=== PATIENT | female | born 1970 | race Caucasian/White ===

== ENCOUNTER 2018-04-09 08:34 | Outpatient (CLI) | payer BC ==
--- NOTE | 2018-04-09 11:05 | MRI ---
MRI CERVICAL SPINE WITHOUT CONTRAST: INDICATIONS: A 48-year-old female with neck pain and cervical radiculopathy. TECHNIQUE: Multiplanar, multisequence MR images were obtained of the cervical spine without IV contrast. FINDINGS: The visualized posterior fossa appears within normal limits. The craniocervical junction on the sagi ttal images appears within normal limits. C2-C3: There is mild to moderate facet joint degenerative change on the left. There is mild facet j oint degenerative change on the right. C3-C4: There is an asymmetric to the left broad-based disk bulge with uncovertebral hypertrophy and facet joint degenerative change. Broad-based bulge does mildly efface the ventral subarachnoid space without cord contact. C4-C5: There is a broad-based bulge with uncovertebral hypertrophy inducing severe right neural fora sherri narrowing. There is also mild central canal narrowing with mild ventral effacement of the spin al cord. C5-C6: There is a broad-based bulge with facet joint degenerative change and uncovertebral hypertrop hy inducing mild central canal narrowing and mild left neural foraminal narrowing. C6-C7: There is a broad-based bulge inducing mild central canal narrowing and mild bilateral neural foraminal narrowing. C7-T1: There is no appreciable central canal or neural foraminal narrowing. There is a small suspected hemangioma at T2. IMPRESSION: Multilevel spondylosis of the cervical spine with central canal and neural foraminal narrowing seen f rom C4-C5 through C6-C7, as above. POS: [facility]
== END 2018-04-09 08:35 | disposition home or self-care (01) ==
LOC: TBSIIMAG 08:34
PROVIDERS: ATTEND Physician Assistant Surgical
DX: M47.22 Other spondylosis with radiculopathy, cervical region (principal); M99.81 Other biomechanical lesions of cervical region; M48.02 Spinal stenosis, cervical region
CPT/HCPCS: 72141

== ENCOUNTER 2018-06-25 10:32 | Outpatient (CLI) | payer BC ==
[2018-06-25 12:22] LABS: Hemoglobin 12.9 g/dL (12.0-16.0); Mean Corpuscular HGB CONC 32.7 g/dL (32.0-36.0); Mean Corpuscular Hemoglobin 31.8 pg (27.0-31.0); Mean Corpuscular Volume 97.1 fL (78.0-98.0); Mean Platelet Volume 7.1 fL (7.4-10.4); Platelet Count 407 thou/uL (130-400); RBC Distribution Width 12.4 % (11.5-14.5); Red Blood Cell (RBC) Count 4.07 mill/uL (4.20-5.40)
[2018-06-25 12:28] LABS: PTT 26.2 SEC (22.9-36.1)
[2018-06-25 12:36] LABS: Prothrombin Time 13.7 SEC (12.0-14.7)
[2018-06-25 12:38] LABS: Anion Gap 13 mmol/L (10-20); BUN (Urea Nitrogen) 12 mg/dL (7.0-18.7); Calc. Creatinine Clearance 0 mL/min (70-130); Calcium 9.2 mg/dL (7.8-10.44); Carbon Dioxide 26 mmol/L (22-29); Chloride 103 mmol/L (98-107); Estimated GFR-MDRD 82; Glucose 87 mg/dL (70-105); Potassium 3.2 mmol/L (3.5-5.1); Sodium 139 mmol/L (136-145)
--- NOTE | 2018-06-25 15:02 | EKG ---
Test Reason : Blood Pressure : / mmHG Vent. Rate : 088 BPM Atrial Rate : 088 BPM P-R Int : 128 ms QRS Dur : 088 ms QT Int : 390 ms P-R-T Axes : -05 031 003 degrees QTc Int : 471 ms Normal sinus rhythm Normal ECG When compared with ECG of 02-MAY-2017 15:30, No significant change was found Confirmed by DR. Cristi ANN ([id number]) on 06/25/2018 3:02:34 PM Referred By: WILDER Confirmed By:DR. Cristi ANN
== END 2018-06-25 10:33 | disposition home or self-care (01) ==
LOC: LABBT 10:32
PROVIDERS: ATTEND Surgery
DX: Z01.818 Encounter for other preprocedural examination (principal); M48.061 Spinal stenosis, lumbar region without neurogenic claudication; M54.12 Radiculopathy, cervical region
CPT/HCPCS: 80048; 85027; 85610; 85730; 93005; 93010

== ENCOUNTER 2018-07-02 05:36 | Day surgery (SDC) | payer BC ==
[2018-06-25 11:08] VITALS: BMI 32.1
[2018-07-02] MEDS ORDERED: CEFAZOLIN 2 GM/50 ML BAG ONE (06:22)
[2018-07-02] MEDS ORDERED: Thrombin 5000 UNITS/5 ML VIAL ONE (06:28)
[2018-07-02] MEDS ORDERED: Sodium Chloride 0.9% 10 ML ONE (06:28)
[2018-07-02] MEDS ORDERED: Fentanyl 250 MCG/5 ML VIAL ONE (07:10)
[2018-07-02] MEDS ORDERED: Midazolam HCl 2 mg/2 ml Vial ONE (07:15)
[2018-07-02] MEDS ORDERED: Famotidine/PF 20 mg/2ml Vial ONE (07:18)
[2018-07-02] MEDS ORDERED: PACU-Morphine 4MG/ML VIAL SLOW IVP PRN (09:16)
[2018-07-02] MEDS ORDERED: Promethazine HCl 25 MG/ML VIAL IM PRN ×2 (09:16→09:48)
[2018-07-02] MEDS ORDERED: Morphine Sulfate 2 MG/ML SYRINGE SLOW IVP PRN (09:16)
[2018-07-02] MEDS ORDERED: Promethazine HCl 25 MG/ML VIAL SLOW IVP PRN (09:16)
[2018-07-02] MEDS ORDERED: Meperidine HCl/PF 25 MG/ML VIAL SLOW IVP PRN (09:16)
[2018-07-02] MEDS ORDERED: HYDROmorphone 2 MG/ML VIAL SLOW IVP PRN (09:16)
[2018-07-02] MEDS ORDERED: Ondansetron HCl/PF 4 MG/2 ML Vial IVP PRN (09:16)
[2018-07-02] MEDS ORDERED: Fleet Enema 133 ML BOT PR PRN (09:48)
[2018-07-02] MEDS ORDERED: Acetaminophen/Codeine 30-300mg Tablet PO PRN (09:48)
[2018-07-02] MEDS ORDERED: Mag-Al 1200 mg/1200 mg/30 ML UDCUP PO PRN (09:48)
[2018-07-02] MEDS ORDERED: Bisacodyl 10 MG SUPP PR PRN (09:48)
[2018-07-02] MEDS ORDERED: Acetaminophen 325 MG TAB PO PRN (09:48)
[2018-07-02] MEDS ORDERED: Milk Of Magnesia 30 ML UDCUP PO PRN (09:48)
[2018-07-02] MEDS ORDERED: Morphine 2 MG/ML SYRINGE SLOW IVP PRN (09:48)
[2018-07-02] MEDS ORDERED: tiZANidine HCl 4 MG TAB PO PRN (09:48)
[2018-07-02] MEDS ORDERED: Fentanyl 100 MCG/2 ML VIAL ONE (10:15)
[2018-07-02] MEDS ORDERED: Morphine 4 MG/ML VIAL ONE (10:35)
--- NOTE | 2018-07-02 11:00 | OP ---
OR: 11. WOUND TYPE: Type 1 wound. SURGEON: Man Farris M.D. MILLING/POLISHING OPERATOR: Azael Jensen PA-C. PREPROCEDURE DIAGNOSES: Multilevel cervical stenosis with spinal cord and nerve root compression, sy mptomatic. POSTPROCEDURE DIAGNOSES: Multilevel cervical stenosis with spinal cord and nerve root compression, s ymptomatic. PROCEDURES: 1. Anterior C4-C5, C5-C6, C6-C7 diskectomies for decompression of the neural elements. 2. Placement of interbody spacer, C4-C5, C5-C6, C6-C7 packed local bone autograft obtained from same incision and allograft arthrodesis C4-C7. 3. Anterior cervical plate and screw fixation C4-C5, C6-C7. 4. Use of operative microscope for microdissection. DESCRIPTION OF PROCEDURE: After informed consent was obtained from the patient, the patient brought to OR 11. Proper patient pause and the identification was carried out. She was placed in excellent endotracheal anesthesia, positioned supine on the OR table. The right anterior oblique stuart was chos en for approach to the C4, C5, C6, C7 segments. This region was sterilely cleansed, prepared, and dr lillian. Proper patient pause and identification was carried out. The wound was then opened with a com bination of sharp, monopolar, and blunt dissection and the C4, C5, C6, C7 segments were exposed proce eding lateral to the larynx and pharynx and medial to the right carotid sheath. We identified again the prevertebral layer of deep cervical fascia and exposed the C4, C5, C6, C7 segments. Satisfied wi th our exposure, we then brought the microscope in for microdissection following localization film an d we proceeded to distract at the C4-C5 segment. Diskectomy was performed there with excellent decom pression of the neural elements. Then endplates were prepared, an interbody spacer packed with graft was placed for arthrodesis. We then turned our attention to distraction of C5-C6 decompression of n eural elements at that segment and preparation of the endplates. Interbody spacer of appropriate dim ension was again packed. We then turned our attention to the C6-C7 segments and distraction at that segment occurred as well with decompression of the neural elements and preparation of the endplates a nd placement of interbody spacer. At the conclusion, we had placement of interbody spacers from C4 a ll the way down to C7 for arthrodesis. That microscope was removed and anterior cervical plate and s crew fixation, C4, C5, C6, C7 and final tightening occurred. Copious irrigation occurred throughout as to maximizing hemostasis. The wound was then closed in anatomic layers following copious irrigati on. The patient then emerged from anesthesia.
[2018-07-02] MEDS: Sodium Chloride 0.9% 1,000 ML IV SCH (11:13)
[2018-07-02] MEDS: traMADol HCl 50 MG TAB PO PRN ×2 (13:03→20:58)
[2018-07-02] MEDS: CEFAZOLIN 2 GM/50 ML BAG IVPB SCH ×2 (13:05→21:00)
[2018-07-02] MEDS ORDERED: Ondansetron PF 4 MG/2 ML Vial ONE (14:30)
[2018-07-02] MEDS ORDERED: Dexamethasone 20 MG/5 ML VIAL ONE (14:30)
[2018-07-02] MEDS ORDERED: Glycopyrrolate 0.2 MG/ML 5 ML SYRINGE ONE (14:30)
[2018-07-02] MEDS ORDERED: Metoclopramide HCl 10 MG/2 ML VIAL ONE (14:30)
[2018-07-02] MEDS ORDERED: PROPOFOL 200 MG/20 ML VIAL ONE (14:30)
[2018-07-02] MEDS ORDERED: Lidocaine 1% PF 5 ML VIAL ONE (14:30)
[2018-07-02] MEDS ORDERED: Amlodipine 5 MG TAB PO SCH ×2 (21:00)
[2018-07-02] MEDS ORDERED: Doxazosin Mesylate 4 MG TAB PO SCH ×2 (21:00)
[2018-07-02] MEDS: HYDROcodone/Acetaminophen 7.5/325 mg Tablet PO PRN (22:46)
[2018-07-03] MEDS: CEFAZOLIN 2 GM/50 ML BAG IVPB SCH (05:43)
[2018-07-03] MEDS: traMADol HCl 50 MG TAB PO PRN (05:47)
[2018-07-03] MEDS: Sodium Chloride 0.9% 1,000 ML IV SCH ×2 (05:47→11:54)
[2018-07-03 08:25] VITALS: TEMP 97.3
[2018-07-03] MEDS ORDERED: Furosemide 20 MG TAB PO SCH ×2 (09:00)
[2018-07-03] MEDS ORDERED: Venlafaxine HCl XR 75 MG CAP PO SCH ×2 (09:00)
[2018-07-03] MEDS ORDERED: Losartan/Hydrochlorothiazide 100 mg/25 mg Tablet PO SCH ×2 (09:00)
--- NOTE | 2018-07-03 11:58 | PRG ---
DATE OF SERVICE: 07/03/2018 Ms. Velasquez is postop day 1 from C4-7 ACDF. Her drain output has been essentially 0. She has no c omplaints. We will plan for dismissal. We went over both intra and postoperative issues.
[2018-07-03 12:12] VITALS: BP 129/71
[2018-07-03] MEDS: HYDROcodone/Acetaminophen 7.5/325 mg Tablet PO PRN (13:00)
== END 2018-07-03 13:24 | disposition home or self-care (01) ==
LOC: SDC 05:36 → SURG B 09:47 → SDC 07-03 13:24
PROVIDERS: ATTEND Surgery
PROC: 0RG2070 Fusion of 2 or more Cervical Vertebral Joints with Autologous Tissue Substitute, Anterior Approach, Anterior Column, Open Approach (ICD-10-PCS; principal; 2018-07-02)
PROC: 0RG20A0 Fusion of 2 or more Cervical Vertebral Joints with Interbody Fusion Device, Anterior Approach, Anterior Column, Open Approach (ICD-10-PCS; principal; 2018-07-02)
PROC: 0RT30ZZ Resection of Cervical Vertebral Disc, Open Approach (ICD-10-PCS; principal; 2018-07-02)
DX: M48.02 Spinal stenosis, cervical region (principal); M50.121 Cervical disc disorder at C4-C5 level with radiculopathy; Z79.82 Long term (current) use of aspirin; Z79.899 Other long term (current) drug therapy; Z88.2 Allergy status to sulfonamides; Z88.8 Allergy status to other drugs, medicaments and biological substances
CPT/HCPCS: 76001; 96374; 96375; C1713; C1776; J0131; J1100; J2001; J2250; J2270; J2405; J2704; J2765; J3010; J3490; S0028

== ENCOUNTER 2018-07-22 11:36 | Outpatient (CLI) | payer BC | END 2018-07-22 11:37 | disposition home or self-care (01) | LOC: BICMAMMO 11:36 | PROVIDERS: ATTEND Obstetrics & Gynecology | DX: Z12.31 Encounter for screening mammogram for malignant neoplasm of breast (principal) | CPT/HCPCS: 77063; 77067 ==

== ENCOUNTER 2018-08-16 09:20 | Outpatient (CLI) | payer BC ==
--- NOTE | 2018-08-16 10:06 | RAD ---
CERVICAL SPINE FOUR VIEWS: 08/16/2018 HISTORY: Cervicalgia. COMPARISON: None available. FINDINGS: C1 to the cervicothoracic junction is seen on the lateral view. Post surgical changes related to ant erior cervical fusion are noted with an anterior plate and screws transfixing the C4-C5, C5-C6, and C 6-C7 levels. Intradiskal prostheses are present at these levels. No hardware complication is seen. There is mild narrowing of the C3-C4 intervertebral disk space with slight kyphosis of the cervical s pine centered at this level. There is also mild widening of the interspinous distance at C3-C4, whic h could be related to positioning and the mild kyphosis. The prevertebral soft tissues are within no rmal limits. There is no fracture or subluxation identified on this exam. IMPRESSION: 1. Mild widening of the interspinous distance at the C3-C4 level, with slight exaggerated kyphosis a t this level as well. Findings may be attributable to positioning. Clinical correlation is suggeste d. 2. Post surgical changes related to anterior cervical fusion at the C4 through C7 levels. No hardwa re complication is seen. 3. Mild facet degenerative changes at the C7-T1 level. POS: [facility]
== END 2018-08-16 09:21 | disposition home or self-care (01) ==
LOC: TBSIIMAG 09:20
PROVIDERS: ATTEND Surgery
DX: M54.2 Cervicalgia (principal); M47.813 Spondylosis without myelopathy or radiculopathy, cervicothoracic region; M40.202 Unspecified kyphosis, cervical region; M50.81 Other cervical disc disorders, high cervical region; Z98.1 Arthrodesis status
CPT/HCPCS: 72040

== ENCOUNTER 2019-07-23 15:45 | Outpatient (CLI) | payer BC ==
--- NOTE | 2019-07-24 08:33 | MMO ---
Bilateral MAMMO Bilat Screen [facility]. CLINICAL HISTORY: Patient is 49 years old and is seen for screening. The patient has no family history of breast cancer. The patient has no personal history of cancer. VIEWS: The views performed were: bilateral craniocaudal with tomosynthesis and bilateral mediolateral oblique with tomosynthesis. FILMS COMPARED: The present examination has been compared to prior imaging studies performed at [facility] on 06/18/2015, 06/19/2016, 07/03/2017 and 07/22/2018. This study has been interpreted with the assistance of computer-aided detection. MAMMOGRAM FINDINGS: There are scattered fibroglandular densities. There are no suspicious masses, suspicious calcifications, or new areas of architectural distortion. IMPRESSION: THERE IS NO MAMMOGRAPHIC EVIDENCE OF MALIGNANCY. A ROUTINE FOLLOW-UP MAMMOGRAM IN 1 YEAR IS RECOMMENDED. THE RESULTS OF THIS EXAM WERE SENT TO THE PATIENT. ACR BI-RADS Category 1 - Negative MAMMOGRAPHY NOTE: 1. A negative mammogram report should not delay a biopsy if a dominant of clinically suspicious mass is present. 2. Approximately 10% to 15% of breast cancers are not detected by mammography. 3. Adenosis and dense breasts may obscure an underlying neoplasm. Reported by: EVANGELISTA WALKER MD Electonically Signed: [id number]
== END 2019-07-23 15:46 | disposition home or self-care (01) ==
LOC: BICMAMMO 15:45
PROVIDERS: ATTEND Obstetrics & Gynecology
DX: Z12.31 Encounter for screening mammogram for malignant neoplasm of breast (principal)
CPT/HCPCS: 77063; 77067

== ENCOUNTER 2019-09-03 09:02 | Outpatient (CLI) | payer BC ==
--- NOTE | 2019-09-03 11:42 | MRI ---
MRI LUMBAR SPINE WITH AND WITHOUT CONTRAST: DATE: 09/03/2019 HISTORY: 49-year-old female with low back pain and lumbar radiculopathy COMPARISON: no prior lumbar MRI Noncontrast CT 04/18/2017. TECHNIQUE: Multiple sequences obtained in axial and sagittal planes, pre and post IV injection of gadolinium-bas ed contrast agent. FINDINGS: Very large number of bilateral renal cysts ranging from tiny to huge. Bilateral nephromegaly. 5 lumbar-type vertebrae. Conus medullaris terminates at L1. T12-L1:Essentially normal. L1-2:Minimal disc bulge. Otherwise essentially normal. L2-3:Minimal disc bulge. Mild bilateral degenerative facet changes. Mild bilateral neural foraminal s tenosis. No central stenosis. Mild dextroscoliosis apex of curvature at L2. L3-4:Severe disc space narrowing with extensive irregularity and numerous tiny endplate defects. Smal l left posterior superior L4 endplate defect. Prominent Modic type II and type III endplate marrow changes. High-grade bilateral facet DJD results in grade 1 anterolisthesis of L3 on L4. New midline l aminectomy defect with resection of ligamentum flavum since prior CT resulting in relief of previously demonstrated severe central spinal canal stenosis. Currently no high-grade central spinal canal stenosis. Focal kyphosis of lumbar spine at this level. Chronic mild grade 1 right lateral subluxation of L3 on L4. Moderate-severe bilateral neural foraminal stenosis. On the left, craniocaud al dimension of the neural foramen is narrowed, with chronic impingement and the formation of the exiting left L3 nerve root.. L4-5:Asymmetrically severe right-sided degenerative disc disease due to concavity of the counter curv ature to the scoliosis, with severe right-sided disc space narrowing, numerous right-sided Schmorl's nodes, and severe right-sided Modic type III changes. Moderate type I changes on the left s jose. Retrolisthesis of L4 on L5. Diffuse disc bulge asymmetrically larger at the right paracentral, right lateral, and right far lateral regions. Interval new midline laminectomy with resection of liga mentum flavum resulting in relief of the previously demonstrated severe central spinal canal stenosis. Postsurgical scar tissue in the right lateral recess surrounding the right L5 nerve root in the epidural space. No high-grade central spinal canal stenosis. Extremely severe right neural foraminal stenosis with chronic compression the exiting right L4 nerve root. There is enhancement in the soft tissues surrounding the exiting right L4 nerve root in the immediate right perivertebral space, just lateral to the neural foramen. Moderate bilateral facet DJD. Moderate left neural foramin al stenosis. L5-S1:Disc space maintained. No central stenosis or high-grade neural foraminal stenosis. Mild facet DJD. IMPRESSION: 1) lumbar spondylosis consisting of February severe degenerative disc disease at L3-4 and L4-5. 2) associated scoliosis and grade 1 spondylolisthesis related to the above. 3) extremely severe right neural foraminal stenosis at L4-5 with significant chronic impingement on e xiting right L4 nerve root, and enhancement of immediate right perivertebral surrounding tissues. 4) moderate to severe bilateral neural foraminal stenosis at L3-4, including chronic compression and deformity of exiting left L3 nerve root. 5) status post interval midline decompressive laminectomies at L3-4 and L4-5, relieving the previousl y demonstrated severe central spinal canal stenoses. 6) evidence for autosomal dominant polycystic kidney disease.
[2019-09-03] MEDS ORDERED: Magnevist 469MG/ML 20 ML VIAL ONE (15:58)
== END 2019-09-03 09:03 | disposition home or self-care (01) ==
LOC: TBSIIMAG 09:02
PROVIDERS: ATTEND Physician Assistant Surgical
DX: M48.061 Spinal stenosis, lumbar region without neurogenic claudication (principal); M54.5 Low back pain; M51.16 Intervertebral disc disorders with radiculopathy, lumbar region; M47.26 Other spondylosis with radiculopathy, lumbar region; M43.16 Spondylolisthesis, lumbar region; M41.9 Scoliosis, unspecified; M25.80 Other specified joint disorders, unspecified joint; Q61.3 Polycystic kidney, unspecified; Z98.890 Other specified postprocedural states
CPT/HCPCS: 72158; A9579

== ENCOUNTER 2019-10-10 12:37 | Outpatient (CLI) | payer BC ==
--- NOTE | 2019-10-10 13:45 | CT ---
CT LUMBAR SPINE WITHOUT CONTRAST: COMPARISON: 04/18/2017. HISTORY: Degenerative disc disease. Low back pain. Pain radiates down the right leg. Patient has had previous back injections. FINDINGS: There is extensive degenerative change with loss of disc space height, vacuum disc phenomenon, sclero sis, subchondral cyst formation and osteophyte formation at L3-L4 and L4-L5. No evidence of fracture. On the coronal images, there is stable leftward curvature of the L3-L4 disc space. Visualized solid organs demonstrate multiple renal masses compatible with polycystic kidney disease. Correlate clinically. Visualized alimentary canal and mesentery is unremarkable. Visualized uterus, adnexal structures and urinary bladder are unremarkable. Presacral fat is preserved. Sacrum is unremarkable. Sacral alae are preserved. There are interval laminectomy defects at L3-L4 and L4-5. Limited evaluation of the contents of the central spinal canal and neural foramina due to technique. T11-T12: No significant central canal stenosis or significant neural foraminal narrowing. T12-L1: No significant central canal stenosis or significant neural foraminal narrowing. L1-L2: Broad-based disc bulge minimally abuts the thecal sac. No significant central canal stenosis. Bilaterally, neural foramina are patent. L2-L3: Broad-based disc bulge, ligament flavum thickening and facet hypertrophy result in mild centra l canal stenosis. Right neural foramen is patent. Mild left foraminal narrowing. L5-S1: Severe loss of disc space height. Posterior laminectomy defect. Broad-based osteophyte ridge w ith mild central canal stenosis. Moderate right and severe left foraminal narrowing. L4-L5: Vacuum disc phenomenon. Broad-based disc-osteophyte complex abuts the thecal sac. There does a ppear to be mass effect upon the ventral thecal sac with narrowing of both subarticular zones. There is presumed partial obscuration of bilateral traversing L5 nerve roots. Posterior laminectomy d efect is identified. Severe right and moderate left foraminal narrowing. L5-S1: Broad-based disc bulge minimally encroaches upon bilateral traversing S1 nerve roots without s ignificant obscuration. No significant central canal stenosis. Mild bilateral foraminal narrowing. IMPRESSION: 1. Severe degenerative disc disease at L3-L4 and L4-L5 as described above. There are posterior petra ctomy defects. No evidence of high-grade central canal stenosis. 2. Significant bilateral foraminal narrowing throughout the lumbar spine as described above. Greatest degree of foraminal stenosis is at L3-L4 and L4-L5. Transcribed Date/Time: 10/10/2019 2:55 PM
== END 2019-10-10 12:38 | disposition home or self-care (01) ==
LOC: TBSIIMAG 12:37
PROVIDERS: ATTEND Surgery
DX: M51.16 Intervertebral disc disorders with radiculopathy, lumbar region (principal); M48.062 Spinal stenosis, lumbar region with neurogenic claudication; M43.16 Spondylolisthesis, lumbar region; M54.5 Low back pain; Z98.890 Other specified postprocedural states
CPT/HCPCS: 72131

== ENCOUNTER 2020-01-12 13:00 | Inpatient (IN) | payer BC, OTHER ==
[2020-01-12 12:32] VITALS: BMI 29.0
[2020-01-12 14:01] LABS: Hemoglobin 13.9 g/dL (12.0-16.0); Mean Corpuscular HGB CONC 32.8 g/dL (32.0-36.0); Mean Corpuscular Hemoglobin 32.9 pg (27.0-31.0); Mean Platelet Volume 7.2 fL (7.4-10.4); Platelet Count 446 thou/uL (130-400); RBC Distribution Width 11.5 % (11.5-14.5); Red Blood Cell (RBC) Count 4.23 mill/uL (4.20-5.40); White Blood Cell (WBC) Count 7.8 thou/uL (4.8-10.8)
[2020-01-12 14:07] LABS: PTT 28.8 sec (22.9-36.1); Prothrombin Time 13.4 sec (12.0-14.7)
[2020-01-12 14:23] LABS: Anion Gap 12 mmol/L (10-20); BUN (Urea Nitrogen) 26 mg/dL (7.0-18.7); Calc. Creatinine Clearance 0 mL/min (70-130); Calcium 9.9 mg/dL (7.8-10.44); Carbon Dioxide 26 mmol/L (22-29); Chloride 101 mmol/L (98-107); Estimated GFR-MDRD 68; Glucose 86 mg/dL (70-105); Potassium 4.2 mmol/L (3.5-5.1); Sodium 135 mmol/L (136-145)
[2020-01-12 18:47] LABS: SARS-CoV-2 MS2 Positive; SARS-CoV-2 N Gene Negative; SARS-CoV-2 S Gene Negative; SARS-CoV-2 orf1ab Negative
[2020-01-15] MEDS ORDERED: Thrombin 5000 UNITS/5 ML VIAL ONE (08:21)
[2020-01-15] MEDS ORDERED: Fentanyl 100 MCG/2 ML VIAL ONE ×2 (09:14→11:30)
[2020-01-15] MEDS ORDERED: HYDROmorphone 0.5 MG/0.5 ML SYRINGE ONE (09:14)
[2020-01-15] MEDS ORDERED: Dexamethasone 20 MG/5 ML VIAL ONE ×2 (11:43→13:00)
[2020-01-15] MEDS ORDERED: HYDROmorphone 2 MG/ML VIAL ONE (12:47)
[2020-01-15] MEDS ORDERED: EPHEDRINE 25 MG/5 ML SYRINGE ONE (13:00)
[2020-01-15] MEDS ORDERED: Rocuronium Bromide 10 MG/ML (10ML VIAL) ONE (13:00)
[2020-01-15] MEDS ORDERED: Lidocaine 1% PF 5 ML VIAL ONE (13:00)
[2020-01-15] MEDS ORDERED: PROPOFOL 200 MG/20 ML VIAL ONE (13:00)
[2020-01-15] MEDS ORDERED: Ondansetron PF 4 MG/2 ML Vial ONE (13:00)
[2020-01-15] MEDS ORDERED: Glycopyrrolate 0.2 MG/ML 5 ML SYRINGE ONE (13:00)
[2020-01-15] MEDS ORDERED: Morphine 2 MG/ML SYRINGE SLOW IVP PRN (14:47)
[2020-01-15] MEDS ORDERED: traMADol HCl 50 MG TAB PO PRN (14:47)
[2020-01-15] MEDS ORDERED: Mag-Al 1200 mg/1200 mg/30 ML UDCUP PO PRN (14:47)
[2020-01-15] MEDS ORDERED: Fleet Enema 133 ML BOT PR PRN (14:47)
[2020-01-15] MEDS ORDERED: Ondansetron PF 4 MG/2 ML Vial IVP PRN (14:47)
[2020-01-15] MEDS ORDERED: Milk Of Magnesia 30 ML UDCUP PO PRN (14:47)
[2020-01-15] MEDS ORDERED: Acetaminophen 325 MG TAB PO PRN (14:47)
[2020-01-15] MEDS ORDERED: Acetaminophen/Codeine 30-300mg Tablet PO PRN (14:47)
[2020-01-15] MEDS ORDERED: Bisacodyl 10 MG SUPP PR PRN (14:47)
[2020-01-15] MEDS ORDERED: Non-Formulary Item 1 EACH (Fexofenadine Hcl [Allegra Allergy] 180 MG) PO PRN (14:51)
[2020-01-15] MEDS ORDERED: hydrALAZINE 20 MG/ML VIAL SLOW IVP PRN (14:52)
[2020-01-15] MEDS ORDERED: CEFAZOLIN 2 GM in Premix Bag 1 BAG IVPB SCH (16:00)
[2020-01-15] MEDS: Sodium Chloride 0.9% 1,000 ML IV SCH (17:01)
[2020-01-15] MEDS: tiZANidine HCl 4 MG TAB PO PRN (17:02)
[2020-01-15] MEDS: HYDROcodone/Acetaminophen 7.5/325 mg Tablet PO PRN ×2 (17:03→22:21)
[2020-01-15] MEDS: CEFAZOLIN 2 GM in Premix Bag 1 BAG IVPB SCH (18:33)
[2020-01-15] MEDS: Potassium Chloride 20 MEQ TAB PO SCH (20:19)
[2020-01-15] MEDS: Doxazosin Mesylate 4 MG TAB PO SCH (20:19)
[2020-01-15] MEDS: cloNIDine 0.1 MG TAB PO SCH (20:19)
[2020-01-16] MEDS: CEFAZOLIN 2 GM in Premix Bag 1 BAG IVPB SCH ×3 (01:32→17:33)
[2020-01-16] MEDS: tiZANidine HCl 4 MG TAB PO PRN (01:33)
[2020-01-16] MEDS: HYDROcodone/Acetaminophen 7.5/325 mg Tablet PO PRN ×3 (05:34→21:41)
[2020-01-16] MEDS: Sodium Chloride 0.9% 1,000 ML IV SCH ×2 (05:36→09:21)
[2020-01-16 06:17] LABS: Anion Gap 10 mmol/L (10-20); BUN (Urea Nitrogen) 14 mg/dL (7.0-18.7); Calc. Creatinine Clearance 118 mL/min (70-130); Calcium 8.6 mg/dL (7.8-10.44); Carbon Dioxide 24 mmol/L (22-29); Chloride 105 mmol/L (98-107); Estimated GFR-MDRD 77; Glucose 120 mg/dL (70-105); Potassium 4.3 mmol/L (3.5-5.1); Sodium 135 mmol/L (136-145)
[2020-01-16 06:42] LABS: Band 15 % (5-11); Hemoglobin 11.9 g/dL (12.0-16.0); Lymphocytes 5 % (21-51); MDiff Complete? YES; Mean Corpuscular HGB CONC 34.1 g/dL (32.0-36.0); Mean Corpuscular Hemoglobin 34.4 pg (27.0-31.0); Mean Platelet Volume 7.3 fL (7.4-10.4); Monocytes 4 % (0-10); Neutrophil 76 % (42-75); Platelet Count 411 thou/uL (130-400); RBC Distribution Width 11.5 % (11.5-14.5); Red Blood Cell (RBC) Count 3.47 mill/uL (4.20-5.40); White Blood Cell (WBC) Count 21.8 thou/uL (4.8-10.8)
[2020-01-16] MEDS: Spironolactone 25 MG TAB PO SCH (08:19)
[2020-01-16] MEDS: Losartan/Hydrochlorothiazide 100 mg/25 mg Tablet PO SCH (08:20)
[2020-01-16] MEDS: Venlafaxine HCl XR 75 MG CAP PO SCH (08:20)
--- NOTE | 2020-01-16 11:26 | PRG ---
DATE OF SERVICE: 01/16/2020 Ms. Velasquez is postoperative day 1 from multilevel lumbar decompression and fusion. She is doing well with resolution in her right leg pain. She has excellent strength throughout her lower extremity myotomes. She is doing exceptionally well today. I would like to keep her one more day given the magnitude of the surgery. She can be discharged tomorrow. Job ID: [id number]
--- NOTE | 2020-01-16 14:02 | OP ---
DATE OF PROCEDURE: 01/15/2020 LOCATION: OR 12. SURGEON: Man Farris MD INDUSTRIAL ELECTRICAL TECHNICIAN: Chelsea Thornton PA-C. PREPROCEDURE DIAGNOSES: Lumbar spinal deformity with scoliosis, spondylolisthesis, and right L4 radiculopathy with right L5 radiculopathy. POSTPROCEDURE DIAGNOSES: Lumbar spinal deformity with scoliosis, spondylolisthesis, and right L4 radiculopathy with right L5 radiculopathy. PROCEDURES: 1. L3 through L5 posterior instrumented fusion with local bone autograft obtained with same incision and allograft. 2. L3 through L5 pedicle screw emily fixation. 3. Right L3-L4 revision hemilaminotomy and foraminotomy. 4. Right L4-L5 Cordova facetectomy with complete removal facet. 5. Transfacet diskectomy, right L4-L5 with removal of pedicle for complete decompression of the foraminal and extraforaminal component of the right L4 nerve root with diskectomy. DESCRIPTION OF PROCEDURE: After informed consent was obtained from the patient, the patient was brought to the OR. Proper patient, pause, and identification were carried out. She was placed under excellent general endotracheal anesthesia and positioned prone on the OR table. Prior wound was identified. This area was sterilely cleansed, prepared, and draped. Proper patient, pause, and identification were carried out. The wound was opened with combination of sharp, monopolar, and blunt dissection. The scarred areas of L3, L4, L5 bilaterally were identified along with transverse processes. Localization film confirmed our area of interest. We then performed a complete Cordova facetectomy at L4-L5 and revision hemilaminotomy on the right side at L3-L4 to complete decompression of the L4 nerve root. We then went out into the lateral and extralaminar lateral foramen with removal of the pedicle and lateral diskectomy, transfacet diskectomy. We also should free of the right L5 nerve root by removing the facet. We then turned our attention to placement of screw and emily fixation at L3, L4, L5 on the left side with anatomic and fluoroscopic guidance, and L3 and L5 rods were placed. Final tightening occurred. BMP along with local bone autograft and allograft were laid out over the left gutters, and a small amount of DuraSeal was applied for protection of the dura. Copious irrigation occurred throughout as to maximize hemostasis. The wound was then closed in anatomic layers. Job ID: [id number]
[2020-01-16] MEDS: cloNIDine 0.1 MG TAB PO SCH (21:38)
[2020-01-16] MEDS: Potassium Chloride 20 MEQ TAB PO SCH (21:43)
[2020-01-16] MEDS: Doxazosin Mesylate 4 MG TAB PO SCH ×2 (21:43→21:52)
[2020-01-17] MEDS: CEFAZOLIN 2 GM in Premix Bag 1 BAG IVPB SCH ×2 (01:41→08:59)
[2020-01-17] MEDS: HYDROcodone/Acetaminophen 7.5/325 mg Tablet PO PRN ×3 (02:30→11:42)
[2020-01-17] MEDS: Sodium Chloride 0.9% 1,000 ML IV SCH (07:33)
[2020-01-17 08:03] VITALS: TEMP 98.1
[2020-01-17] MEDS: Spironolactone 25 MG TAB PO SCH (08:58)
[2020-01-17] MEDS: Venlafaxine HCl XR 75 MG CAP PO SCH (08:58)
[2020-01-17] MEDS: Losartan/Hydrochlorothiazide 100 mg/25 mg Tablet PO SCH (08:59)
[2020-01-17 11:42] VITALS: BP 109/68
--- NOTE | 2020-01-18 00:13 | DIS ---
DATE OF ADMISSION: 01/15/2020 DATE OF DISCHARGE: 01/17/2020 Ms. Velasquez was admitted to [facility] by Dr. Man Farris on January 15, 2020, with discharge date on January 17, 2020. ADMISSION DIAGNOSIS: Status post lumbar decompression. DISCHARGE DIAGNOSIS: Status post lumbar decompression. Ms. Velasquez was admitted to the hospital for pain control and observation after surgery on the 14 of January. Consultations ordered to Physical Therapy. She was slow to mobilize early, but ultimately on the second day of her admission was up and moving and quite comfortable and ready to go home. She was discharged home in excellent condition with 2-week followup planned in the outpatient setting. Job ID: [id number]
== END 2020-01-17 12:30 | disposition home or self-care (01) | DRG 460 ==
LOC: SURG A 01-15 07:40 → EDSTATUS 01-15 13:00 → SJJU 01-15 16:09
PROVIDERS: ADMIT Surgery; ATTEND Surgery
PROC: 0SG1071 Fusion of 2 or more Lumbar Vertebral Joints with Autologous Tissue Substitute, Posterior Approach, Posterior Column, Open Approach (ICD-10-PCS; principal; 2020-01-15)
PROC: 01NB0ZZ Release Lumbar Nerve, Open Approach (ICD-10-PCS; 2020-01-15)
PROC: 0SB20ZZ Excision of Lumbar Vertebral Disc, Open Approach (ICD-10-PCS; 2020-01-15)
PROC: 00UT0JZ Supplement Spinal Meninges with Synthetic Substitute, Open Approach (ICD-10-PCS; 2020-01-15)
PROC: 3E0U0GB Introduction of Recombinant Bone Morphogenetic Protein into Joints, Open Approach (ICD-10-PCS; 2020-01-15)
DX: M48.061 Spinal stenosis, lumbar region without neurogenic claudication (principal); M43.16 Spondylolisthesis, lumbar region; M54.16 Radiculopathy, lumbar region; M41.9 Scoliosis, unspecified; Z79.82 Long term (current) use of aspirin; Z88.1 Allergy status to other antibiotic agents; Z88.2 Allergy status to sulfonamides; Z88.8 Allergy status to other drugs, medicaments and biological substances; Z11.59 Encounter for screening for other viral diseases
CPT/HCPCS: 36415; 36416; 76000; 80048; 84703; 85025; 85027; 85610; 85730; 86850; 86900; 86901; 87635; 93005; C1768; J0690; J1100; J1170; J2001; J2405; J2704; J3010; J3370; U0003

== ENCOUNTER 2020-02-23 10:55 | Outpatient (CLI) | payer BC ==
--- NOTE | 2020-02-23 12:38 | RAD ---
LUMBAR SPINE 3 VIEWS: Date: 02/23/2020 HISTORY: Postop evaluation. COMPARISON: CT exam dated 10/10/2019. FINDINGS: New left L3-L5 and right L3-L5 posterior spinal fusion hardware with transpedicular screws and interc onnecting rods. Laminectomy change. Moderate dextroscoliosis centered at L2-3. No evidence for hardware complication. IMPRESSION: Satisfactory postoperative appearance. POS: [facility]
== END 2020-02-23 10:56 | disposition home or self-care (01) ==
LOC: TBSIIMAG 10:55
PROVIDERS: ATTEND Physician Assistant
DX: M51.16 Intervertebral disc disorders with radiculopathy, lumbar region (principal); Z98.1 Arthrodesis status
CPT/HCPCS: 72100

== ENCOUNTER 2020-07-26 12:33 | Outpatient (CLI) | payer BC ==
--- NOTE | 2020-07-26 15:30 | MMO ---
Bilateral MAMMO Bilat Screen [facility]. CLINICAL HISTORY: Patient is 50 years old and is seen for screening. The patient has no family history of breast cancer. The patient has no personal history of cancer. VIEWS: The views performed were: bilateral craniocaudal with tomosynthesis and bilateral mediolateral oblique with tomosynthesis. FILMS COMPARED: The present examination has been compared to prior imaging studies performed at [facility] on 06/19/2016, 07/03/2017, 07/22/2018 and 07/23/2019. This study has been interpreted with the assistance of computer-aided detection. MAMMOGRAM FINDINGS: There are scattered fibroglandular densities. Benign calcifications are noted bilaterally. There are no suspicious masses, suspicious calcifications, or new areas of architectural distortion. IMPRESSION: THERE IS NO MAMMOGRAPHIC EVIDENCE OF MALIGNANCY. A ROUTINE FOLLOW-UP MAMMOGRAM IN 1 YEAR IS RECOMMENDED. THE RESULTS OF THIS EXAM WERE SENT TO THE PATIENT. ACR BI-RADS Category 2 - Benign finding MAMMOGRAPHY NOTE: 1. A negative mammogram report should not delay a biopsy if a dominant of clinically suspicious mass is present. 2. Approximately 10% to 15% of breast cancers are not detected by mammography. 3. Adenosis and dense breasts may obscure an underlying neoplasm. Reported by: SUSAN NEGRETE MD Electonically Signed: [id number]
== END 2020-07-26 12:34 | disposition home or self-care (01) ==
LOC: BICMAMMO 12:33
PROVIDERS: ATTEND Obstetrics & Gynecology
DX: Z12.31 Encounter for screening mammogram for malignant neoplasm of breast (principal)
CPT/HCPCS: 77063; 77067

== ENCOUNTER 2020-12-08 09:43 | Outpatient (CLI) | payer BC | END 2020-12-08 09:44 | disposition home or self-care (01) | LOC: LABBT 09:43 | PROVIDERS: ATTEND Surgery | DX: Z01.818 Encounter for other preprocedural examination (principal); M51.16 Intervertebral disc disorders with radiculopathy, lumbar region; Z20.822 Contact with and (suspected) exposure to COVID-19 | CPT/HCPCS: 93005; 93010 ==

== ENCOUNTER 2020-12-14 05:52 | Day surgery (SDC) | payer BC ==
[2020-12-13 11:54] VITALS: BMI 31.9
[2020-12-14] MEDS ORDERED: Thrombin 5000 UNITS/5 ML VIAL ONE (06:36)
[2020-12-14] MEDS ORDERED: Fentanyl 100 MCG/2 ML VIAL ONE (07:03)
[2020-12-14] MEDS ORDERED: Midazolam HCl 2 mg/2 ml Vial ONE (07:03)
[2020-12-14] MEDS ORDERED: Morphine 10 MG/ML VIAL ONE (07:04)
[2020-12-14] MEDS ORDERED: SUGAMMADEX SODIUM 500 MG/5 ML VIAL ONE (07:17)
[2020-12-14] MEDS ORDERED: Lidocaine 1% PF 5 ML VIAL ONE (07:35)
[2020-12-14] MEDS ORDERED: Dexamethasone 20 MG/5 ML VIAL ONE (07:35)
[2020-12-14] MEDS ORDERED: Ondansetron PF 4 MG/2 ML Vial ONE (07:35)
[2020-12-14] MEDS ORDERED: PROPOFOL 200 MG/20 ML VIAL ONE (07:35)
[2020-12-14] MEDS ORDERED: Rocuronium Bromide 10 MG/ML (10ML VIAL) ONE (07:35)
[2020-12-14] MEDS ORDERED: Ondansetron HCl/PF 4 MG/2 ML Vial IVP PRN (08:10)
[2020-12-14] MEDS ORDERED: Promethazine HCl 25 MG/ML VIAL SLOW IVP PRN (08:10)
[2020-12-14] MEDS ORDERED: Promethazine HCl 25 MG/ML VIAL IM PRN (08:10)
[2020-12-14] MEDS ORDERED: Morphine Sulfate 2 MG/ML SYRINGE SLOW IVP PRN (08:10)
[2020-12-14] MEDS ORDERED: traMADol HCl 50 MG TAB PO PRN (09:39)
[2020-12-14] MEDS ORDERED: tiZANidine HCl 4 MG TAB PO PRN (09:39)
[2020-12-14] MEDS ORDERED: Acetaminophen/Codeine 30-300mg Tablet PO PRN (09:39)
[2020-12-14] MEDS ORDERED: Morphine 2 MG/ML VIAL SLOW IVP PRN (09:39)
[2020-12-14] MEDS ORDERED: Acetaminophen 325 MG TAB PO PRN (09:39)
[2020-12-14] MEDS ORDERED: Furosemide 20 MG TAB PO PRN (09:41)
[2020-12-14] MEDS ORDERED: Non-Formulary Item 1 EACH (Fexofenadine Hcl [Allegra Allergy] 180 MG Tablet) PO PRN (09:41)
[2020-12-14] MEDS ORDERED: Morphine 4 MG/ML VIAL ONE (10:14)
[2020-12-14] MEDS ORDERED: Morphine 2 MG/ML VIAL ONE ×2 (12:25→14:33)
[2020-12-14] MEDS ORDERED: HYDROcodone/Acetaminophen 7.5/325 mg Tablet ONE (16:27)
[2020-12-14] MEDS: Sodium Chloride 0.9% 1,000 ML IV SCH (18:39)
[2020-12-14] MEDS: CEFAZOLIN 2 GM in Premix Bag 1 BAG IVPB SCH (18:39)
[2020-12-14] MEDS ORDERED: Morphine 4 MG/ML VIAL SLOW IVP PRN (20:15)
[2020-12-14] MEDS: HYDROcodone/Acetaminophen 7.5/325 mg Tablet PO PRN (20:16)
[2020-12-14] MEDS ORDERED: Potassium Chloride 20 MEQ TAB PO SCH (21:00)
[2020-12-14] MEDS ORDERED: Doxazosin Mesylate 4 MG TAB PO SCH (21:00)
[2020-12-15] MEDS: Sodium Chloride 0.9% 1,000 ML IV SCH ×2 (00:07→13:24)
[2020-12-15] MEDS ORDERED: Spironolactone 25 MG TAB PO SCH (08:00)
[2020-12-15] MEDS: HYDROcodone/Acetaminophen 7.5/325 mg Tablet PO PRN (08:31)
[2020-12-15] MEDS ORDERED: Venlafaxine HCl XR 75 MG CAP PO SCH (09:00)
[2020-12-15] MEDS ORDERED: Losartan/Hydrochlorothiazide 100 mg/25 mg Tablet PO SCH (09:00)
[2020-12-15 12:00] VITALS: BP 114/75; TEMP 98.2
== END 2020-12-15 15:24 | disposition home or self-care (01) ==
LOC: SDC 05:52 → T4-B 09:39 → SDC 12-15 15:24
PROVIDERS: ATTEND Surgery
PROC: 0SB20ZZ Excision of Lumbar Vertebral Disc, Open Approach (ICD-10-PCS; principal; 2020-12-14)
PROC: 0QB00ZZ Excision of Lumbar Vertebra, Open Approach (ICD-10-PCS; principal; 2020-12-14)
DX: M71.38 Other bursal cyst, other site (principal); M51.16 Intervertebral disc disorders with radiculopathy, lumbar region; Q61.3 Polycystic kidney, unspecified; Z79.82 Long term (current) use of aspirin; Z79.899 Other long term (current) drug therapy; Z88.2 Allergy status to sulfonamides; Z88.8 Allergy status to other drugs, medicaments and biological substances
CPT/HCPCS: 76000; J0690; J1100; J2250; J2270; J2405; J2704; J3010; J3370

== ENCOUNTER 2021-05-31 13:17 | Outpatient (CLI) | payer BC ==
[2020-12-09 15:19] LABS: Anion Gap 15 mmol/L (10-20); BUN (Urea Nitrogen) 24 mg/dL (7.0-18.7); Calc. Creatinine Clearance 0 mL/min (70-130); Calcium 9.6 mg/dL (7.8-10.44); Carbon Dioxide 24 mmol/L (22-29); Chloride 102 mmol/L (98-107); Glucose 80 mg/dL (70-105); Potassium 4.6 mmol/L (3.5-5.1); Sodium 136 mmol/L (136-145)
[2020-12-09 15:28] LABS: PTT 26.4 sec (22.0-33.0); Prothrombin Time 10.9 sec (9.5-12.1)
[2020-12-09 15:39] LABS: Hemoglobin 13.7 g/dL (12.0-15.5); Mean Corpuscular HGB CONC 34.2 g/dL (32.0-36.0); Mean Corpuscular Hemoglobin 32.2 pg (27.0-33.0); Mean Corpuscular Volume 94.4 fl (81.6-98.3); Mean Platelet Volume 9.4 fl (7.4-10.4); Platelet Count 367 10x3/uL (150-450); RBC Distribution Width 12.5 % (11.5-14.5); Red Blood Cell (RBC) Count 4.25 10x6/uL (3.90-5.03)
[2020-12-10 01:48] LABS: SARS-CoV-2 PCR by NAA Not Detected (NotDetected)
[2021-05-31 15:24] LABS: Hemoglobin 13.7 g/dL (12.0-15.5); Mean Corpuscular HGB CONC 33.6 g/dL (32.0-36.0); Mean Corpuscular Hemoglobin 32.5 pg (27.0-33.0); Mean Corpuscular Volume 96.7 fl (81.6-98.3); Mean Platelet Volume 9.7 fl (7.4-10.4); Platelet Count 356 10x3/uL (150-450); RBC Distribution Width 12.7 % (11.5-14.5); Red Blood Cell (RBC) Count 4.22 10x6/uL (3.90-5.03); White Blood Cell (WBC) Count 10.8 10x3/uL (3.5-10.5)
[2021-05-31 15:36] LABS: PTT 25.4 sec (22.0-33.0); Prothrombin Time 10.9 sec (9.5-12.1)
[2021-05-31 16:01] LABS: Anion Gap 15 mmol/L (10-20); BUN (Urea Nitrogen) 20 mg/dL (9.8-20.1); Calc. Creatinine Clearance 0 mL/min (70-130); Calcium 9.7 mg/dL (7.8-10.44); Carbon Dioxide 25 mmol/L (22-29); Chloride 103 mmol/L (98-107); Glucose 97 mg/dL (70-105); Potassium 4.2 mmol/L (3.5-5.1); Sodium 139 mmol/L (136-145)
[2021-06-01 00:09] LABS: SARS-CoV-2 PCR by NAA Not Detected (NotDetected)
== END 2021-05-31 13:18 | disposition home or self-care (01) ==
LOC: LABBT 13:17
PROVIDERS: ATTEND Surgery
DX: Z01.818 Encounter for other preprocedural examination (principal); M51.16 Intervertebral disc disorders with radiculopathy, lumbar region; Z20.822 Contact with and (suspected) exposure to COVID-19
CPT/HCPCS: 80048; 85027; 85610; 85730; 93005; 93010; U0003; U0005

== ENCOUNTER 2021-05-31 15:40 | Emergency (ER) | payer BC ==
[~2021-05-31 15:40] MED LIST: Iopamidol-370 76% 500 ML 1 ML ONE
[2021-05-31] MEDS ORDERED: Adenosine 6 MG/2 ML VIAL ONE ×2 (15:48→15:55)
[2021-05-31] MEDS ORDERED: Magnesium 2 GM/50 ML BAG (IN WATER) ONE (15:52)
[2021-05-31 16:01] LABS: #Eosinphils 0.1 thou/uL (0.0-0.7); #Lymphocytes 2.5 thou/uL (1.20-3.40); #Monocytes 1.1 thou/uL (0.11-0.59); #Neutrophils 10.6 thou/uL (1.40-6.50); %Basophils 0.2 % (0.0-1.0); %Eosinophils 0.8 % (0.0-10.0); %Lymphocytes 17.2 % (21.0-51.0); %Monocytes 7.9 % (0.0-10.0); Mean Corpuscular Volume 97.4 fL (78.0-98.0); Mean Platelet Volume 6.8 fL (7.4-10.4); Platelet Count 361 thou/uL (130-400); RBC Distribution Width 11.9 % (11.5-14.5); Red Blood Cell (RBC) Count 4.29 mill/uL (4.20-5.40); White Blood Cell (WBC) Count 14.3 thou/uL (4.8-10.8)
[2021-05-31 16:22] LABS: ALT (SGPT) 19 U/L (8-55); AST (SGOT) 16 U/L (5-34); Albumin 4.2 g/dL (3.5-5.0); Alkaline Phosphatase 73 U/L (40-110); Anion Gap 17 mmol/L (10-20); BUN (Urea Nitrogen) 17 mg/dL (9.8-20.1); Bilirubin, Total 0.3 mg/dL (0.2-1.2); Calc. Creatinine Clearance 0 mL/min (70-130); Carbon Dioxide 23 mmol/L (22-29); Chloride 104 mmol/L (98-107); Globulin 3.1 g/dL (2.4-3.5); Glucose 107 mg/dL (70-105); Potassium 4.2 mmol/L (3.5-5.1); Protein, Total 7.3 g/dL (6.0-8.3); Sodium 140 mmol/L (136-145)
[2021-05-31 16:53] LABS: Free T4 (Free Thyroxine) 0.87 ng/dL (0.70-1.48); Thyroid Stimulating Hormone 0.9779 uIU/mL (0.35-4.94)
== END 2021-05-31 18:05 | disposition home or self-care (01) ==
LOC: ERS 15:40
DX: I47.1 Supraventricular tachycardia (principal); Z79.899 Other long term (current) drug therapy; Z01.818 Encounter for other preprocedural examination; M51.16 Intervertebral disc disorders with radiculopathy, lumbar region; Z20.822 Contact with and (suspected) exposure to COVID-19
CPT/HCPCS: 36415; 71275; 80048; 83735; 84439; 84443; 84484; 85027; 85379; 85610; 85730; 93005; 96365; 96375; J0153; J3475; Q9967; U0003; U0005

== ENCOUNTER 2021-06-16 14:21 | Outpatient (CLI) | payer BC ==
[2021-06-16 15:33] LABS: Hemoglobin 13.7 g/dL (12.0-15.5); Mean Corpuscular HGB CONC 33.3 g/dL (32.0-36.0); Mean Corpuscular Hemoglobin 32.5 pg (27.0-33.0); Mean Corpuscular Volume 97.4 fl (81.6-98.3); Mean Platelet Volume 9.6 fl (7.4-10.4); Platelet Count 395 10x3/uL (150-450); RBC Distribution Width 12.5 % (11.5-14.5); Red Blood Cell (RBC) Count 4.22 10x6/uL (3.90-5.03); White Blood Cell (WBC) Count 7.7 10x3/uL (3.5-10.5)
[2021-06-16 15:46] LABS: Anion Gap 14 mmol/L (10-20); BUN (Urea Nitrogen) 21 mg/dL (9.8-20.1); Calc. Creatinine Clearance 0 mL/min (70-130); Calcium 9.9 mg/dL (7.8-10.44); Carbon Dioxide 25 mmol/L (22-29); Chloride 104 mmol/L (98-107); Glucose 102 mg/dL (70-105); Potassium 4.4 mmol/L (3.5-5.1); Sodium 139 mmol/L (136-145)
[2021-06-16 15:48] LABS: PTT 25.4 sec (22.0-33.0); Prothrombin Time 10.9 sec (9.5-12.1)
[2021-06-17 08:45] LABS: SARS-CoV-2 PCR by NAA Not Detected (NotDetected)
== END 2021-06-16 14:22 | disposition home or self-care (01) ==
LOC: LABBT 14:21
PROVIDERS: ATTEND Surgery
DX: Z01.818 Encounter for other preprocedural examination (principal); M51.16 Intervertebral disc disorders with radiculopathy, lumbar region; Z20.822 Contact with and (suspected) exposure to COVID-19
CPT/HCPCS: 80048; 85027; 85610; 85730; 93005; 93010; U0003; U0005

== ENCOUNTER 2021-06-21 07:23 | Observation (INO) | payer BC ==
[2021-06-20 11:51] VITALS: BMI 34.9
[2021-06-21] MEDS ORDERED: Fentanyl 250 MCG/5 ML VIAL ONE (10:19)
[2021-06-21] MEDS ORDERED: PROPOFOL 200 MG/20 ML VIAL ONE (10:33)
[2021-06-21] MEDS ORDERED: Glycopyrrolate 0.2 MG/ML 5 ML SYRINGE ONE (10:33)
[2021-06-21] MEDS ORDERED: Rocuronium Bromide 10 MG/ML (10ML VIAL) ONE (10:33)
[2021-06-21] MEDS ORDERED: Lidocaine 1% PF 5 ML VIAL ONE (10:33)
[2021-06-21] MEDS ORDERED: Ondansetron PF 4 MG/2 ML Vial ONE (10:33)
[2021-06-21] MEDS ORDERED: Dexamethasone 20 MG/5 ML VIAL ONE (10:33)
[2021-06-21] MEDS ORDERED: traMADol HCl 50 MG TAB PO PRN (12:46)
[2021-06-21] MEDS ORDERED: Acetaminophen/Codeine 30-300mg Tablet PO PRN (12:46)
[2021-06-21] MEDS ORDERED: Acetaminophen 325 MG TAB PO PRN (12:46)
[2021-06-21] MEDS ORDERED: Furosemide 20 MG TAB PO PRN (12:49)
[2021-06-21] MEDS ORDERED: Non-Formulary Item 1 EACH (Fexofenadine Hcl [Allegra Allergy] 180 MG Tablet) PO PRN (12:49)
[2021-06-21] MEDS ORDERED: hydrALAZINE 20 MG/ML VIAL SLOW IVP PRN (12:50)
[2021-06-21] MEDS ORDERED: Thrombin 5000 UNITS/5 ML VIAL ONE (12:56)
[2021-06-21] MEDS ORDERED: Promethazine HCl 25 MG/ML VIAL IVPB PRN (12:57)
[2021-06-21] MEDS ORDERED: PACU-Morphine 4MG/ML VIAL SLOW IVP PRN (12:57)
[2021-06-21] MEDS ORDERED: Ondansetron HCl/PF 4 MG/2 ML Vial IVP PRN (12:57)
[2021-06-21] MEDS ORDERED: HYDROmorphone 2 MG/ML VIAL SLOW IVP PRN (12:57)
[2021-06-21] MEDS ORDERED: Morphine Sulfate 2 MG/ML SYRINGE SLOW IVP PRN (12:57)
[2021-06-21] MEDS ORDERED: Promethazine HCl 25 MG/ML VIAL IM PRN (12:57)
[2021-06-21] MEDS ORDERED: Ketorolac Tromethamine 30 MG/ML VIAL IVP PRN (12:57)
[2021-06-21] MEDS ORDERED: Fentanyl 100 MCG/2 ML VIAL ONE (13:15)
[2021-06-21] MEDS ORDERED: Morphine 4 MG/ML VIAL SLOW IVP PRN (13:21)
[2021-06-21] MEDS: Sodium Chloride 0.9% 1,000 ML IV SCH (15:30)
[2021-06-21] MEDS: HYDROcodone/Acetaminophen 7.5/325 mg Tablet PO PRN ×2 (16:32→21:01)
[2021-06-21] MEDS: CEFAZOLIN 2 GM in Sodium Chloride 0.9% 100 ML IVPB SCH (16:32)
[2021-06-21] MEDS: tiZANidine HCl 4 MG TAB PO PRN (20:29)
[2021-06-21] MEDS ORDERED: Potassium Chloride 20 MEQ TAB PO SCH (21:00)
[2021-06-21] MEDS ORDERED: Doxazosin Mesylate 4 MG TAB PO SCH (21:00)
[2021-06-22] MEDS: CEFAZOLIN 2 GM in Sodium Chloride 0.9% 100 ML IVPB SCH (00:42)
[2021-06-22] MEDS: Sodium Chloride 0.9% 1,000 ML IV SCH ×2 (00:42→08:28)
[2021-06-22] MEDS: tiZANidine HCl 4 MG TAB PO PRN (06:05)
[2021-06-22] MEDS: HYDROcodone/Acetaminophen 7.5/325 mg Tablet PO PRN ×2 (06:06→12:35)
[2021-06-22] MEDS ORDERED: Spironolactone 25 MG TAB PO SCH (09:00)
[2021-06-22] MEDS ORDERED: Venlafaxine HCl XR 75 MG CAP PO SCH (09:00)
[2021-06-22] MEDS ORDERED: Multivit, Therapeutic 1 TAB PO SCH (09:00)
[2021-06-22] MEDS ORDERED: Losartan/Hydrochlorothiazide 100 mg/25 mg Tablet PO SCH (09:00)
[2021-06-22 11:39] VITALS: BP 111/69; TEMP 97.7
[2021-06-28] MEDS ORDERED: [UNRECOGNIZED DRUG - REMARK] FS SCH (09:00)
== END 2021-06-22 13:40 | disposition home or self-care (01) ==
LOC: SDC 07:23 → T4-B 12:51
PROVIDERS: ADMIT Surgery; ATTEND Surgery
PROC: 0SB20ZZ Excision of Lumbar Vertebral Disc, Open Approach (ICD-10-PCS; principal; 2021-06-21)
DX: M51.16 Intervertebral disc disorders with radiculopathy, lumbar region (principal); Z79.899 Other long term (current) drug therapy; Z88.2 Allergy status to sulfonamides; Z88.8 Allergy status to other drugs, medicaments and biological substances
CPT/HCPCS: 76000; 96374; 96376; G0378; J0690; J1100; J2405; J2704; J3010; J3370; J3490; J7050

== ENCOUNTER 2022-02-02 12:46 | Emergency (ER) | payer BC ==
[2022-02-02] MEDS ORDERED: Ketorolac Tromethamine 30 MG/ML VIAL ONE (15:57)
== END 2022-02-02 17:26 | disposition home or self-care (01) ==
LOC: ERS 12:46
DX: M54.50 Low back pain, unspecified (principal); I10 Essential (primary) hypertension; Z79.899 Other long term (current) drug therapy
CPT/HCPCS: 72100; 96372; J1885

== ENCOUNTER 2022-02-17 09:51 | Outpatient (CLI) | payer BC | END 2022-02-17 09:52 | disposition home or self-care (01) | LOC: TBSIIMAG 09:51 | PROVIDERS: ATTEND Surgery | DX: S39.012A Strain of muscle, fascia and tendon of lower back, initial encounter (principal) | CPT/HCPCS: 72100 ==